=== PATIENT | female | born 2005 | race Caucasian/White ===

== ENCOUNTER 2025-05-04 18:39 | Emergency (ER) | payer SELFPAY ==
[~2025-05-04] VITALS: Ht 157.5 cm; Wt 110.0 kg
[2025-05-04 18:54] VITALS: O2SAT 99
[2025-05-04 19:03] VITALS: BP 130/84; PULSE 83; RESP 16; TEMP 37.2; O2SAT 100
[2025-05-04] MEDS ORDERED: MAGNESIUM/ALUMINUM HYDROXIDE/SIMETHICONE 30ML UDC PO ONE (21:30)
[2025-05-04] MEDS ORDERED: ACETAMINOPHEN 500MG TABLET PO ONE (21:30)
[2025-05-04] MEDS ORDERED: VISCOUS LIDOCAINE 2% 15 ML UDC MM ONE (21:30)
[2025-05-04 22:19] LABS: BASOPHILS % 0.6 % (0.0-2.0); EOSINOPHILS % 5.3 % (0.0-5.0); HEMATOCRIT. 36.7 % (36.0-48.0); HEMOGLOBIN. 11.6 g/dL (12.0-16.0); LYMPHOCYTES % 30.6 % (20.0-50.0); MEAN PLATELET VOLUME 8.8 fl (7.4-10.4); MONOCYTES % 4.5 % (2.0-8.0); NEUTROPHILS % 59.0 % (40.0-76.0); PLATELET 327 x1000/uL (130-400); RED BLOOD CELL COUNT 4.52 mill/uL (4.2-5.4); RED CELL DISTRIBUTION WIDTH 16.8 % (11.6-14.6)
[2025-05-04 22:32] LABS: HCG SCREEN POSITIVE
[2025-05-04 22:41] LABS: CREATININE 0.7 mg/dL (0.6-1.0)
[2025-05-04 22:42] LABS: UREA NITROGEN BLOOD 9 mg/dL (9-23)
[2025-05-04 22:43] LABS: ASPARTATE AMINOTRANSFERASE 19 IU/L (<34)
[2025-05-04 22:44] LABS: BILIRUBIN DIRECT < 0.1 mg/dL (<=3.0); BILIRUBIN TOTAL 0.2 mg/dL (0.1-1.0); PROTEIN TOTAL 7.5 g/dL (6.0-8.3)
[2025-05-04] MEDS: VISCOUS LIDOCAINE 2% 15 ML UDC MM SCH (22:45)
[2025-05-04 23:05] VITALS: TEMP 99
[2025-05-04] MEDS: ACETAMINOPHEN 500MG TABLET PO SCH (23:05)
[2025-05-04] MEDS: MAGNESIUM/ALUMINUM HYDROXIDE/SIMETHICONE 30ML UDC PO SCH (23:05)
[2025-05-04 23:22] LABS: CLARITY URINE CLOUDY (CLEAR); COLOR URINE YELLOW (YELLOW); GLUCOSE URINE NEGATIVE (NEGATIVE); KETONES URINE NEGATIVE (NEGATIVE); LEUKOCYTE ESTERASE URINE 3+ (NEGATIVE); NITRITE URINE NEGATIVE (NEGATIVE); OCCULT BLOOD URINE TRACE (NEGATIVE); PH URINE 6.0 (4.5-8.0); PROTEIN URINE TRACE (NEGATIVE); SPECIFIC GRAVITY URINE 1.027 (1.005-1.030); UROBILINOGEN URINE 0.2 E.U./dL (0.2-1.0)
[2025-05-05 00:13] LABS: SQUAMOUS EPITHELIAL CELL URINE 1+ /lpf (RARE/1+)
[2025-05-05 00:14] LABS: WBC URINE 50-100 /hpf (0-2)
[2025-05-05 00:15] LABS: BACTERIA URINE 2+
[2025-05-05 02:51] LABS: INFLUENZA TYPE A Presumptive Negative (Pres. Neg.)
[2025-05-05 02:52] LABS: INFLUENZA TYPE B Presumptive Negative (Pres. Neg.)
[2025-05-05 02:53] LABS: RESPIRATORY SYNCYTIAL VIRUS Not Detected (Not Detectd)
[2025-05-05] MEDS ORDERED: CALC-586 MT (04:23)
[2025-05-05] MEDS ORDERED: NITR100C MT (04:23)
[2025-05-05] MEDS ORDERED: ACET-3800 MT (04:23)
== END 2025-05-05 04:46 | disposition home or self-care (01) ==
LOC: ER 19:45
DX: O26.891 Other specified pregnancy related conditions, first trimester (principal); R10.20 Pelvic and perineal pain unspecified side; Z79.899 Other long term (current) drug therapy; Z20.822 Contact with and (suspected) exposure to COVID-19; Z3A.01 Less than 8 weeks gestation of pregnancy
CPT/HCPCS: 36415; 76705; 76801; 80048; 80076; 81003; 81025; 84702; 84703; 85025; 87077; 87420; 87426; 87804; 99284